=== PATIENT | female | born 1995 | race African-American/Black ===

== ENCOUNTER 2017-02-06 12:04 | Observation (INO) | payer OTHER ==
--- NOTE | 2017-02-06 12:19 | PDOC ---
History of Present Illness - General Stated Complaint: CHEST PAIN Time Seen by Provider: 02/06/17 12:18 History Source: Patient Exam Limitations: No Limitations - History of Present Illness Initial Comments: 02/06/17 12:49 Chief complaint: Chest pain, headache, dizziness, nausea Patient is a healthy 21-year-old female return from college last night, was passenger in a car, slept on the way home and when she woke up she was dizzy. Patient states she was dry heaving last night but slept, no fever. Patient states she awoke this am, very dizzy, unable to stand, light sensitive with pain to the right side of her chest which hurts when she moves. No abdominal pain. No difficulty urinating or having bowel movements. Patient denies any recent trauma but she doesn't state that her left knee started bothering her 2 weeks ago especially when she walks. Patient is not on any medications, patient is not on control. she denies being sexually active GENERAL/CONSTITUTIONAL: No fever, weakness. +dizziness HEAD, EYES, EARS, NOSE AND THROAT: No change in vision. No ear pain or discharge. No sore throat. CARDIOVASCULAR: No chest pain RESPIRATORY: No shortness of breath or cough GASTROINTESTINAL: No pain, +nausea, no: vomiting, diarrhea or constipation GENITOURINARY: No dysuria MUSCULOSKELETAL: No neck or back pain SKIN: No rash NEUROLOGIC: +headache, vertigo, loss of consciousness, or loss of sensation. GENERAL: The patient is awake, alert, and fully oriented, in no acute distress. HEAD: Normal with no signs of trauma. EYES: Pupils equal, round and reactive to light, sclera anicteric, conjunctiva clear.+ Sensitivity to light ENT: pharynx: no erythema, no exudate, uvula midline NECK: supple, no tenderness or pain CHEST: clear, + right upper anterior tenderness, rr ABD: soft, nontender EXTREMITIES: Normal range of motion, no edema. No tenderness, no calf tenderness or swelling NEUROLOGICAL: Normal speech, unable to assess gait SKIN: Warm, Dry 02/06/17 14:32 Past History - Past Medical History Allergies/Adverse Reactions: Allergies Allergy/AdvReac Type Severity Reaction Status Date / Time No Known Drug Allergies Allergy Verified 02/06/17 12:17 Home Medications: Ambulatory Orders NK [No Known Home Medication] 02/06/17 Heart Score/ECG Review - Age Age: </= 45 - ECG Intrepretation Rhythm: Regular Rhythm - ST and T Comment:: 02/06/17 13:09 normal sinus rhythm at 75, normal ekg - ECG Impressions Normal ECG: Yes ED Treatment Course - LABORATORY CBC & Chemistry Diagram: 02/06/17 13:08 02/06/17 13:08 - RADIOLOGY Chest X-Ray Result: No Infiltrates (right fissure line) Comments: left knee xray, nap Medical Decision Making - Medical Decision Making 02/06/17 14:07 Patient is improving, headache is gone, photophobia is gone, dizziness is getting better although patient is still somewhat unsteady standing although feels better sitting 02/06/17 16:52 Patient is now feeling more dizzy and unsteady, although headache is gone, pt unable to ambulate steady. will place patient on observation. pmd kavitha de la cruz, confirmed with pt 02/06/17 17:[address] power, who requested ct scan head and will place on observation. neuro consult, dr. carrington 02/06/17 18:[address] walsh, agreed with management will see tomorrow, ct pending 02/06/17 18:11 02/06/17 18:[address] still pending radiology read. dr. yeung reviewed. no obvious gross abnormalities. *DC/Admit/Observation/Transfer Diagnosis at time of Disposition: Dizziness - Discharge Dispostion Condition at time of disposition: Fair Admit: Yes - Referrals - Patient Instructions - Post Discharge Activity
[2017-02-06 12:25] VITALS: BMI 17.4
[2017-02-06] MEDS ORDERED: METOCLOPRAMIDE HCL INJECTION 10 MG/2 ML VIAL IVPUSH ONE (12:46)
[2017-02-06] MEDS ORDERED: SODIUM CHLORIDE 1,000 ML IV STA (12:46)
[2017-02-06] MEDS ORDERED: FAMOTIDINE IV 20 MG/12 ML VIAL IVPUSH ONE (12:47)
[2017-02-06] MEDS ORDERED: METOCLOPRAMIDE HCL INJECTION 10 MG/2 ML VIAL ONE (12:53)
[2017-02-06] MEDS ORDERED: FAMOTIDINE 20 MG/50 ML IVPB 20 MG/50 ML MG IVPB ONE (12:53)
[2017-02-06 13:13] LABS: EOS % 2.1 % (0-4.5); MCH 27.7 pg (25.7-33.7); MCHC 34.1 g/dl (32.0-36.0); MEAN CELL VOLUME 81.4 fl (80-96); MEAN PLT VOLUME 6.8 fl (7.5-11.1); PLATELET COUNT 362 K/MM3 (134-434); RDW 16.4 % (11.6-15.6); WHITE BLOOD COUNT 8.5 K/mm3 (4.0-10.0)
[2017-02-06 13:19] LABS: URINE APPEARANCE CLEAR; URINE BILIRUBIN NEGATIVE (NEGATIVE); URINE BLOOD NEGATIVE (NEGATIVE); URINE COLOR YELLOW; URINE GLUCOSE (UA) NEGATIVE (NEGATIVE); URINE KETONE NEGATIVE (NEGATIVE); URINE LEUK ESTERASE NEGATIVE (NEGATIVE); URINE NITRITE NEGATIVE (NEGATIVE); URINE PROTEIN NEGATIVE (NEGATIVE); URINE UROBILINOGEN 4.0 E.U/dl mg/dL (0.2-1.0)
[2017-02-06 13:40] LABS: ALBUMIN 4.2 g/dl (3.4-5.0); ANION GAP 8 (8-16); CALCIUM 9.2 mg/dL (8.5-10.1); CO2 26 mmol/L (21-32); CREATININE 0.7 mg/dL (0.55-1.02); GLUCOSE,RANDOM 79 mg/dL (74-106); SGOT/AST 25 U/L (15-37); SGPT/ALT 18 U/L (12-78)
[2017-02-06 13:42] LABS: ALK PHOS 65 U/L (45-117); TOT PROT 7.8 g/dl (6.4-8.2)
[2017-02-06] MEDS ORDERED: MECLIZINE HCL 25 MG TABLET (FP) PO ONE ×2 (14:20→17:30)
[2017-02-06] MEDS ORDERED: MECLIZINE HCL 25 MG TABLET (FP) ONE ×2 (14:24→17:39)
[2017-02-06 14:30] LABS: CPK 49 IU/L (26-192)
--- NOTE | 2017-02-06 14:44 | PDOC ---
*Physical Exam - Vital Signs Last Vital Signs Temp Pulse Resp BP Pulse Ox 98.9 F 89 18 114/87 100 02/06/17 12:18 02/06/17 12:18 02/06/17 12:18 02/06/17 12:18 02/06/17 12:18 ED Treatment Course - LABORATORY CBC & Chemistry Diagram: 02/06/17 13:08 02/06/17 13:08 - ADDITIONAL ORDERS Additional order review: Laboratory Results 02/06/17 02/06/17 02/06/17 13:08 13:05 13:05 Sodium 138 Potassium 4.3 Chloride 104 Carbon Dioxide 26 Anion Gap 8 BUN 10 Creatinine 0.7 Creat Clearance w eGFR > 60 Random Glucose 79 Calcium 9.2 Total Bilirubin 2.0 H AST 25 ALT 18 Alkaline Phosphatase 65 Creatine Kinase 49 Total Protein 7.8 Albumin 4.2 Serum , Qual Negative Urine Color Yellow Urine Appearance Clear Urine pH 7.0 Ur Specific [place] 1.012 Urine Protein Negative Urine Glucose (UA) Negative Urine Ketones Negative Urine Blood Negative Urine Nitrite Negative Urine Bilirubin Negative Urine Urobilinogen 4.0 e.u/dl H 02/06/17 13:08 RBC 4.96 MCV 81.4 MCHC 34.1 RDW 16.4 H MPV 6.8 L Neutrophils % 56.0 Lymphocytes % 31.2 Monocytes % 9.7 Eosinophils % 2.1 Basophils % 1.0 - Medications Given in the ED: ED Medications Discontinued Medications Generic Name Dose Route Start Last Admin Trade Name Freq PRN Reason Stop Dose Admin Famotidine 20 mg in 12 mls @ 144 mls/hr 02/06/17 12:47 02/06/17 13:10 Pepcid 20 Mg/12 Ml Push IVPUSH 02/06/17 12:51 144 mls/hr NOW ONE Administration Sodium Chloride 1,000 mls @ 1,000 mls/hr 02/06/17 12:46 02/06/17 13:09 Normal Saline - IV 02/06/17 13:45 1,000 mls/hr ASDIR STA Administration Meclizine HCl 25 mg 02/06/17 14:20 02/06/17 14:30 Antivert - PO 02/06/17 14:21 25 mg ONCE ONE Administration Metoclopramide HCl 10 mg 02/06/17 12:46 02/06/17 13:10 Reglan Injection - IVPUSH 02/06/17 12:47 10 mg ONCE ONE Administration Medical Decision Making - Medical Decision Making 02/06/17 14:44 Pt seen by the Advanced Practice Provider under my direct supervision Ancillary studies reviewed I agree with plan as outlined by the Advanced Practice Provider *DC/Admit/Observation/Transfer Diagnosis at time of Disposition: Dizziness - Discharge Dispostion Condition at time of disposition: Fair - Referrals - Patient Instructions - Post Discharge Activity - Attestations Physician Attestion: 02/06/17 17:49 I, Dr. Delta Carvajal MD, attest that this document has been prepared under my direction and personally reviewed by me in its entirety. I further attest, that it accurately reflects all work, treatment, procedures and medical decision -making performed by me.
[2017-02-06 14:59] LABS: TROPONIN I < 0.02 ng/ml (0.00-0.05)
[2017-02-06 17:57] LABS: URINE LEUK ESTERASE Negative (NEGATIVE)
--- NOTE | 2017-02-07 12:25 | CONSULT ---
Consult - text type - Consultation Consultation Note: Neurology History of Present Illness Patient is a healthy 21-year-old female return from college night prior to admission , was passenger in a car, slept on the way home and when she woke up she was dizzy. Patient states she was dry heaving last night but slept, no fever. Patient states she awoke this am, very dizzy, unable to stand, light sensitive with pain to the right side of her chest which hurts when she moves. No abdominal pain. No difficulty urinating or having bowel movements. Patient denies any recent trauma but she doesn't state that her left knee started bothering her 2 weeks ago especially when she walks. She completed CT head in ER and which did not show acute changes. Meclezine given in ER but without significant improvement. This AM, remains dizzy but some improvement with IV fluids. Did stand for me but became dizzy. Start patient on Meclezine, three times a day, standing dose. Active Medications Meclizine HCl (Antivert -) 25 mg PO TID ABA Past History - Past Medical History Allergies/Adverse Reactions: Allergies Allergy/AdvReac Type Severity Reaction Status Date / Time No Known Drug Allergies Allergy Verified 02/06/17 12:17 Home Medications: Ambulatory Orders NK [No Known Home Medication] 02/06/17 GENERAL/CONSTITUTIONAL: No fever, weakness. +dizziness HEAD, EYES, EARS, NOSE AND THROAT: No change in vision. No ear pain or discharge. No sore throat. CARDIOVASCULAR: No chest pain RESPIRATORY: No shortness of breath or cough GASTROINTESTINAL: No pain, +nausea, no: vomiting, diarrhea or constipation GENITOURINARY: No dysuria MUSCULOSKELETAL: No neck or back pain SKIN: No rash NEUROLOGIC: +headache, vertigo, loss of consciousness, or loss of sensation. Heart Score/ECG Review - Age Age: </= 45 - ECG Intrepretation Rhythm: Regular Rhythm - ST and T Comment:: 02/06/17 13:09 normal sinus rhythm at 75, normal ekg - ECG Impressions Normal ECG: Yes EXAM: GENERAL: The patient is awake, alert, and fully oriented, in no acute distress. HEAD: Normal with no signs of trauma. EYES: Pupils equal, round and reactive to light, sclera anicteric, conjunctiva clear.+ Sensitivity to light ENT: pharynx: no erythema, no exudate, uvula midline NECK: supple, no tenderness or pain CHEST: clear, + right upper anterior tenderness, rr ABD: soft, nontender EXTREMITIES: Normal range of motion, no edema. No tenderness, no calf tenderness or swelling NEUROLOGICAL: Normal speech, sensory intact, CN normal, Able to stand but antalgic on ambulation SKIN: Warm, Dry CBCD WBC 8.5 K/mm3 (4.0-10.0) 02/06/17 13:08 RBC 4.96 M/mm3 (3.60-5.2) 02/06/17 13:08 Hgb 13.7 GM/dL (10.7-15.3) 02/06/17 13:08 Hct 40.3 % (32.4-45.2) 02/06/17 13:08 MCV 81.4 fl (80-96) 02/06/17 13:08 MCHC 34.1 g/dl (32.0-36.0) 02/06/17 13:08 RDW 16.4 % (11.6-15.6) H 02/06/17 13:08 Plt Count 362 K/MM3 (134-434) 02/06/17 13:08 MPV 6.8 fl (7.5-11.1) L 02/06/17 13:08 CMP Sodium 138 mmol/L (136-145) 02/06/17 13:08 Potassium 4.3 mmol/L (3.5-5.1) 02/06/17 13:08 Chloride 104 mmol/L (98-107) 02/06/17 13:08 Carbon Dioxide 26 mmol/L (21-32) 02/06/17 13:08 Anion Gap 8 (8-16) 02/06/17 13:08 BUN 10 mg/dL (7-18) 02/06/17 13:08 Creatinine 0.7 mg/dL (0.55-1.02) 02/06/17 13:08 Creat Clearance w eGFR > 60 (>60) 02/06/17 13:08 Calcium 9.2 mg/dL (8.5-10.1) 02/06/17 13:08 Total Bilirubin 2.0 mg/dL (0.2-1.0) H 02/06/17 13:08 AST 25 U/L (15-37) 02/06/17 13:08 ALT 18 U/L (12-78) 02/06/17 13:08 Alkaline Phosphatase 65 U/L (45-117) 02/06/17 13:08 Total Protein 7.8 g/dl (6.4-8.2) 02/06/17 13:08 Albumin 4.2 g/dl (3.4-5.0) 02/06/17 13:08 - RADIOLOGY Chest X-Ray Result: No Infiltrates (right fissure line) Comments: left knee xray, nap Medical Decision Making 21-year-old female return from college night prior to admission , was passenger in a car, slept on the way home and when she woke up she was dizzy. Patient states she was dry heaving last night but slept, no fever. Patient states she awoke this am, very dizzy, unable to stand, light sensitive with pain to the right side of her chest which hurts when she moves. No abdominal pain. No difficulty urinating or having bowel movements. Patient denies any recent trauma but she doesn't state that her left knee started bothering her 2 weeks ago especially when she walks. She completed CT head in ER and which did not show acute changes. Meclezine given in ER but without significant improvement. This AM, remains dizzy but some improvement with IV fluids. Did stand for me but became dizzy. Start patient on Meclezine, three times a day, standing dose. If this improves symptoms, can consider discharge. If has difficulty ambulating later in the day, can consider Valium 2mg (lower than typical dose of 5mg as to try to avoid sedation). Continue fluid hydration. Information given to patient for outpatient follow up if improves.
[2017-02-07] MEDS: MECLIZINE HCL 25 MG TABLET (FP) PO SCH ×2 (13:10→21:16)
--- NOTE | 2017-02-07 17:45 | HP ---
Admitting History and Physical - Admission History of Present Illness: Pt is a healthy 21 y/o female w/ no significant PMH who presented to the ER w/ dizzyness. Pt was in a car driving home from college on a long car ride wc then led to the dizzyness. Pt also had some vomiting but denied any abdominal pain, no fever, no chills and no diarrhea. Pt also was unable to stand and had some light sensitivity. Pt denies any ZHANG or nuchal rigidity. Pt did have ct scan head done wc was unremarkable. Pt was given meclizine in the ER but her symptoms continued and she was unable to stand due to unsteady gait. - Past Medical History ...LMP: 01/13/17 ...LMP Comment: irregular - Past Surgical History Past Surgical History: Yes: None - Smoking History Smoking history: Never smoked - Alcohol/Substance Use Hx Alcohol Use: No Home Medications - Allergies Allergies/Adverse Reactions: Allergies Allergy/AdvReac Type Severity Reaction Status Date / Time No Known Drug Allergies Allergy Verified 02/06/17 12:17 - Home Medications Home Medications: Ambulatory Orders NK [No Known Home Medication] 02/06/17 Family Disease History - Family Disease History Family History: Unremarkable Review of Systems - Review of Systems Constitutional: reports: No Symptoms Eyes: reports: No Symptoms HENT: reports: No Symptoms Neck: reports: No Symptoms Cardiovascular: reports: No Symptoms Respiratory: reports: No Symptoms Gastrointestinal: reports: No Symptoms Genitourinary: reports: No Symptoms Neurological: reports: Unsteady Gait Physical Examination Vital Signs: Vital Signs Temperature 98.1 F 02/07/17 13:26 Pulse Rate 89 02/07/17 13:26 Respiratory Rate 20 02/07/17 13:26 Blood Pressure 123/65 02/07/17 13:26 O2 Sat by Pulse Oximetry (%) 100 02/07/17 12:55 Constitutional: Yes: No Distress HENT: Yes: WNL Neck: Yes: WNL, Supple Cardiovascular: Yes: WNL, Regular Rate and Rhythm Respiratory: Yes: WNL, Regular, CTA Bilaterally Gastrointestinal: Yes: WNL, Normal Bowel Sounds, Soft Musculoskeletal: Yes: WNL Extremities: Yes: WNL Edema: No Neurological: Yes: WNL, Alert, Oriented ...Motor Strength: WNL Labs: CBC, BMP 02/06/17 13:08 02/06/17 13:08 Problem List - Problems (1) Vertigo Assessment/Plan: Cont meclizine Cont IVF As per neuro Encourage ambulation Code(s): R42 - DIZZINESS AND GIDDINESS
[2017-02-07] MEDS: DEXTROSE 5%-0.45% SALINE 1,000 ML IV SCH (18:03)
[2017-02-08] MEDS: MECLIZINE HCL 25 MG TABLET (FP) PO SCH (05:48)
[2017-02-08] MEDS: DEXTROSE 5%-0.45% SALINE 1,000 ML IV SCH (05:48)
[2017-02-08 07:44] LABS: BASO % 1.1 % (0-2.0); EOS % 9.3 % (0-4.5); MCH 28.3 pg (25.7-33.7); MCHC 34.8 g/dl (32.0-36.0); MEAN CELL VOLUME 81.4 fl (80-96); MEAN PLT VOLUME 6.9 fl (7.5-11.1); NEUT % 30.5 % (42.8-82.8); PLATELET COUNT 323 K/MM3 (134-434); WHITE BLOOD COUNT 6.4 K/mm3 (4.0-10.0)
[2017-02-08 08:04] LABS: ALBUMIN 3.5 g/dl (3.4-5.0); ANION GAP 7 (8-16); BILIRUBIN,TOTAL 1.1 mg/dL (0.2-1.0); CALCIUM 8.3 mg/dL (8.5-10.1); CO2 25 mmol/L (21-32); CREATININE 0.7 mg/dL (0.55-1.02); GLUCOSE,RANDOM 89 mg/dL (74-106); SGOT/AST 17 U/L (15-37); SGPT/ALT 14 U/L (12-78); TOT PROT 6.6 g/dl (6.4-8.2)
[2017-02-08 08:05] LABS: ALK PHOS 58 U/L (45-117)
--- NOTE | 2017-02-08 09:49 | PN ---
Progress Note (short form) - Note Progress Note: Neurology History of Present Illness Patient is a healthy 21-year-old female return from college night prior to admission , was passenger in a car, slept on the way home and when she woke up she was dizzy. Patient states she was dry heaving last night but slept, no fever. Patient states she awoke this am, very dizzy, unable to stand, light sensitive with pain to the right side of her chest which hurts when she moves. No abdominal pain. No difficulty urinating or having bowel movements. Patient denies any recent trauma but she doesn't state that her left knee started bothering her 2 weeks ago especially when she walks. She completed CT head in ER and which did not show acute changes. Start patient on Meclezine, three times a day, standing dose. Doing better this morning, seen ambulating to restroom and without ataxia. Asking when symptoms will completely resolve but may take a few more days. On IV fluids and medication has helped. Active Medications Meclizine HCl (Antivert -) 25 mg PO TID ABA Vital Signs Temperature 97.9 F 02/08/17 06:00 Pulse Rate 79 02/08/17 06:00 Respiratory Rate 20 02/08/17 06:00 Blood Pressure 108/53 02/08/17 06:00 O2 Sat by Pulse Oximetry (%) 100 02/07/17 20:00 EXAM: GENERAL: The patient is awake, alert, and fully oriented, in no acute distress. HEAD: Normal with no signs of trauma. EYES: Pupils equal, round and reactive to light, sclera anicteric, conjunctiva clear.+ Sensitivity to light ENT: pharynx: no erythema, no exudate, uvula midline NECK: supple, no tenderness or pain CHEST: clear, + right upper anterior tenderness, rr ABD: soft, nontender EXTREMITIES: Normal range of motion, no edema. No tenderness, no calf tenderness or swelling NEUROLOGICAL: Normal speech, sensory intact, CN normal, Able to stand and ambulate SKIN: Warm, Dry CBCD WBC 6.4 K/mm3 (4.0-10.0) 02/08/17 07:15 RBC 4.48 M/mm3 (3.60-5.2) 02/08/17 07:15 Hgb 12.7 GM/dL (10.7-15.3) 02/08/17 07:15 Hct 36.4 % (32.4-45.2) 02/08/17 07:15 MCV 81.4 fl (80-96) 02/08/17 07:15 MCHC 34.8 g/dl (32.0-36.0) 02/08/17 07:15 RDW 16.0 % (11.6-15.6) H 02/08/17 07:15 Plt Count 323 K/MM3 (134-434) 02/08/17 07:15 MPV 6.9 fl (7.5-11.1) L 02/08/17 07:15 CMP Sodium 139 mmol/L (136-145) 02/08/17 07:15 Potassium 3.9 mmol/L (3.5-5.1) 02/08/17 07:15 Chloride 107 mmol/L (98-107) 02/08/17 07:15 Carbon Dioxide 25 mmol/L (21-32) 02/08/17 07:15 Anion Gap 7 (8-16) L 02/08/17 07:15 BUN 8 mg/dL (7-18) 02/08/17 07:15 Creatinine 0.7 mg/dL (0.55-1.02) 02/08/17 07:15 Creat Clearance w eGFR > 60 (>60) 02/08/17 07:15 Calcium 8.3 mg/dL (8.5-10.1) L 02/08/17 07:15 Total Bilirubin 1.1 mg/dL (0.2-1.0) H D 02/08/17 07:15 AST 17 U/L (15-37) D 02/08/17 07:15 ALT 14 U/L (12-78) D 02/08/17 07:15 Alkaline Phosphatase 58 U/L (45-117) 02/08/17 07:15 Total Protein 6.6 g/dl (6.4-8.2) 02/08/17 07:15 Albumin 3.5 g/dl (3.4-5.0) 02/08/17 07:15 - RADIOLOGY Chest X-Ray Result: No Infiltrates (right fissure line) Comments: left knee xray, nap Medical Decision Making 21-year-old female return from college night prior to admission , was passenger in a car, slept on the way home and when she woke up she was dizzy. Patient states she was dry heaving last night but slept, no fever. Patient states she awoke this am, very dizzy, unable to stand, light sensitive with pain to the right side of her chest which hurts when she moves. No abdominal pain. No difficulty urinating or having bowel movements. Patient denies any recent trauma but she doesn't state that her left knee started bothering her 2 weeks ago especially when she walks. She completed CT head in ER and which did not show acute changes, meclezine has been helpful and looks comfortable this AM. Getting IV fluid hydration. Seen ambulating this AM. Can follow up as outpatient.
[2017-02-08 10:27] VITALS: BP 114/60; PULSE 94; TEMP 98.5
--- NOTE | 2017-02-08 22:53 | DS ---
Physical Examination Vital Signs: Vital Signs Temperature 98.5 F 02/08/17 10:00 Pulse Rate 94 H 02/08/17 10:00 Respiratory Rate 18 02/08/17 10:00 Blood Pressure 114/60 02/08/17 10:00 O2 Sat by Pulse Oximetry (%) 100 02/08/17 12:00 Constitutional: Yes: No Distress Neck: Yes: WNL, Supple Cardiovascular: Yes: WNL, Regular Rate and Rhythm Respiratory: Yes: WNL, Regular, CTA Bilaterally Gastrointestinal: Yes: WNL, Normal Bowel Sounds, Soft Labs: CBC, BMP 02/08/17 07:15 02/08/17 07:15 Discharge Summary Reason For Visit: DIZZINESS Vertigo Hospital Course: Pt is 21 y/o female w/ no significant PMH who presented to the ER bcof vertigo. Pt had CT scan head wc did not show any acute pathology. Pt was seen by neuro and started on meclizine and IVF. Pt also had unsteady gait. Pt symptoms improved and was dc'ed home. Condition: Good - Instructions Diet, Activity, Other Instructions: Regular diet See Dr Miller in 1 week [phone] Referrals: La Miller [Primary Care Provider] - Disposition: HOME - Home Medications Comprehensive Discharge Medication List: Ambulatory Orders Meclizine HCl [Antivert -] 25 mg PO TID #30 tablet 02/08/17
--- NOTE | 2017-02-12 13:55 | EKG ---
Test Reason : Blood Pressure : / mmHG Vent. Rate : 075 BPM Atrial Rate : 075 BPM P-R Int : 138 ms QRS Dur : 086 ms QT Int : 362 ms P-R-T Axes : 000 068 048 degrees QTc Int : 404 ms NORMAL SINUS RHYTHM NORMAL ECG NO PREVIOUS ECGS AVAILABLE Confirmed by SONY LI MD ([id number]) on 02/12/2017 1:54:40 PM Referred By: Confirmed By:SONY LI MD
== END 2017-02-08 13:20 | disposition home or self-care (01) ==
LOC: JER 12:04 → JERBED 17:08 → J5S 19:32 → INTOOBSV 02-07 17:44 → OBSVTOIN 02-07 17:44
PROVIDERS: ADMIT Internal Medicine; ATTEND Internal Medicine
PROC: 3E033GC Introduction of Other Therapeutic Substance into Peripheral Vein, Percutaneous Approach (ICD-10-PCS; principal; 2017-02-06)
PROC: 3E0337Z Introduction of Electrolytic and Water Balance Substance into Peripheral Vein, Percutaneous Approach (ICD-10-PCS; 2017-02-06)
DX: R42 Dizziness and giddiness (principal)
CPT/HCPCS: 36415; 70450-TC; 71020-TC; 73562-TC-LT; 80053; 81003; 82550; 84484; 84703; 85025; 93005; 93010; 96361; 96374; 96375; 99285-25; G0378

== ENCOUNTER 2020-06-12 22:09 | Emergency (ER) | payer OTHER ==
[2020-06-12 22:31] VITALS: BP 130/93; PULSE 97; TEMP 98.4; BMI 16.9
== END 2020-06-12 23:01 | disposition home or self-care (01) ==
LOC: JER 22:09
DX: R21 Rash and other nonspecific skin eruption (principal)
CPT/HCPCS: 99281-25

== ENCOUNTER 2022-01-16 00:12 | Emergency (ER) | payer OTHER ==
[2022-01-16 01:09] VITALS: BP 108/71; PULSE 101; RESP 18; TEMP 99; BMI 18.3
[2022-01-16] MEDS ORDERED: AZITHROMYCIN 250 MG TABLET PO ONE (03:51)
[2022-01-16] MEDS ORDERED: AZITHROMYCIN 250 MG TABLET ONE (04:03)
== END 2022-01-16 04:53 | disposition home or self-care (01) ==
LOC: JER 00:12
DX: J06.9 Acute upper respiratory infection, unspecified (principal)
CPT/HCPCS: 0241U-QW; 71046-TC-FY; 87651; 99284-25